=== PATIENT | male | born 1985 | race Caucasian/White ===

== ENCOUNTER 2024-07-03 02:45 | Emergency (ER) | payer OTHER, MEDICAID ==
[~2024-07-03] VITALS: Ht 188 cm; Wt 77.1 kg
[2024-07-03 03:08] VITALS: BP 127/77; PULSE 71; RESP 20; TEMP 97.9; O2SAT 98
[2024-07-03 06:35] VITALS: O2SAT 98
[2024-07-03 07:04] VITALS: BP 127/77; PULSE 71; RESP 20; TEMP 97.9; O2SAT 98
== END 2024-07-03 07:05 | disposition home or self-care (01) ==
LOC: MED 02:45
DX: L08.9 Local infection of the skin and subcutaneous tissue, unspecified (principal); F15.90 Other stimulant use, unspecified, uncomplicated; F10.90 Alcohol use, unspecified, uncomplicated; Y90.9 Presence of alcohol in blood, level not specified
CPT/HCPCS: 99281